=== PATIENT | female | born 1995 | race Caucasian/White ===

== ENCOUNTER 2021-09-05 14:25 | Emergency (ER) | payer MEDICARE, OTHER ==
[2021-09-05 14:34] VITALS: BP 138/71; PULSE 91; RESP 18; TEMP 98.9
[2021-09-05 15:35] LABS: Appearance,Urine Cloudy (Clear); Bacteria,Urine Many /hpf; Bilirubin,Urine Negative (Negative); Blood,Urine Negative (Negative); Color,Urine Yellow; Glucose,Urine (UA) Negative (Negative); Hyaline Casts,Urine 2 /lpf (0-2); Ketones,Urine Negative (Negative); Leukocyte Esterase,Urine Negative (Negative); Mucus,Urine Few /hpf; Nitrite,Urine Negative (Negative); Protein,Urine Trace (Negative); RBC,Urine 2 /hpf (0-5); Specific Gravity,Urine 1.025 (1.001-1.035); Squamous Epithelial Cell,Urine 5 /hpf (0-4); Urobilinogen,Urine <2.0 mg/dL (<2.0); WBC,Urine 16 /hpf (0-5)
[2021-09-05] MEDS ORDERED: SODIUM CHLORIDE 0.9% 2,000 ML IV STA (15:53)
[2021-09-05] MEDS ORDERED: MORPHINE SULFATE 4 MG/ML SYRINGE IVP STA (16:09)
[2021-09-05] MEDS ORDERED: CEPHALEXIN 250 MG CAP PO STA (16:10)
[2021-09-05 16:43] LABS: ALT 17 U/L (4-34); AST 22 U/L (14-36); African American GFR (CKD) >90 (>60 ml/min/1.73 sqM); Albumin 3.4 g/dL (3.5-5.0); Alkaline Phosphatase 117 U/L (38-126); Anion Gap 3 mmol/L; Blood Urea Nitrogen 12 mg/dL (7-17); Carbon Dioxide 28 mmol/L (22-30); Chloride 103 mmol/L (98-107); Glucose 69 mg/dL (74-99); Lipase 157 U/L (23-300); Non-African American GFR(CKD) >90 (>60 ml/min/1.73 sqM); Potassium 4.4 mmol/L (3.5-5.1); Sodium 134 mmol/L (137-145); Total Bilirubin 0.4 mg/dL (0.2-1.3); Total Protein 6.5 g/dL (6.3-8.2)
--- NOTE | 2021-09-05 17:02 | ED ---
General Adult HPI - General Chief complaint: Abdominal Pain Stated complaint: Fever,back/abd pain Time Seen by Provider: 09/05/21 15:44 Source: patient Mode of arrival: ambulatory Limitations: no limitations - History of Present Illness Initial comments: A0 female at 37 weeks who presents with a chief complaint of back pain. Patient states she has lower back issues which causes chronic pain however has experienced worsened pain since last night. Patient states the pain is in the lower right and left back. She states the pain is refractory to Tylenol. Patient also reports intermittent nausea since last night, one episode of vomiting, nonbloody. Patient currently denies nausea. Patient denies fever, chills, abdominal pain, and vaginal bleeding. Upon questioning patient does admit to burning with urination. Patient states she has just moved to the [facility] from up [place] and needs a new CONSUMER SERVICES CONSULTANT. - Related Data Previous Rx's Medication Instructions Recorded Cephalexin [Keflex] 250 mg PO Q6HR 5 Days #20 cap 09/05/21 Allergies Allergy/AdvReac Type Severity Reaction Status Date / Time No Known Allergies Allergy Verified 09/05/21 14:34 Review of Systems ROS Statement: Those systems with pertinent positive or pertinent negative responses have been documented in the HPI. ROS Other: All systems not noted in ROS Statement are negative. Past Medical History Past Medical History: Asthma Additional Past Medical History / Comment(s): preclampsia History of Any Multi-Drug Resistant Organisms: None Reported Past Surgical History: No Surgical Hx Reported Past Psychological History: No Psychological Hx Reported Smoking Status: Current every day smoker Past Alcohol Use History: None Reported Past Drug Use History: Marijuana General Exam Limitations: no limitations General appearance: alert, in no apparent distress Head exam: Present: atraumatic, normocephalic, normal inspection Eye exam: Present: normal appearance, PERRL, EOMI. Absent: scleral icterus, conjunctival injection, periorbital swelling Respiratory exam: Present: normal lung sounds bilaterally. Absent: respiratory distress, wheezes, rales, rhonchi, stridor Cardiovascular Exam: Present: regular rate, normal rhythm, normal heart sounds. Absent: systolic murmur, diastolic murmur, rubs, gallop, clicks GI/Abdominal exam: Present: soft, distended (Patient is 37 weeks ), normal bowel sounds. Absent: tenderness, guarding, rebound, rigid Back exam: Present: normal inspection, full ROM. Absent: CVA tenderness (R), CVA tenderness (L), muscle spasm, paraspinal tenderness, vertebral tenderness Neurological exam: Present: alert, oriented X3, CN II-XII intact Psychiatric exam: Present: normal affect, normal mood Skin exam: Present: warm, dry, intact, normal color. Absent: rash Course Vital Signs 09/05/21 14:30 Temperature 98.9 F Pulse Rate 91 Respiratory 18 Rate Blood Pressure 138/71 O2 Sat by Pulse 98 Oximetry Medical Decision Making - Medical Decision Making This is a 26 old female at 37 weeks who presents with back pain, dysuria, and intermittent nausea since last night. Thorough history and examination were performed. Patient is well-appearing apparent distress. She is afebrile. Pulse is normal at 91. No abdominal pain or vaginal bleeding. Laboratory studies reveal a mildly elevated white count at 10.9. Other laboratory studies are relative unremarkable. Urinalysis is indicative infection. Patient given dose of Keflex in the emergency department. heart tones were ordered however patient states she would like to be discharged. Patient does mention she needs a new CONSUMER SERVICES CONSULTANT so I will refer her. She is encouraged to follow up at earliest available appointment especially since she is due soon. I will discharge her with Keflex for urinary tract infection. Return parameters discussed. Patient verbalizes understanding. She was discharged in stable condition. Dr. Bhatia is my attending. - Lab Data Result diagrams: 09/05/21 16:06 09/05/21 16:06 Lab Results 09/05/21 09/05/21 09/05/21 Range/Units 15:21 16:06 16:06 WBC 10.9 H (3.8-10.6) k/uL RBC 3.99 (3.80-5.40) m/uL Hgb 12.7 (11.4-16.0) gm/dL Hct 37.5 (34.0-46.0) % MCV 93.9 (80.0-100.0) fL MCH 31.9 (25.0-35.0) pg MCHC 34.0 (31.0-37.0) g/dL RDW 13.6 (11.5-15.5) % Plt Count 241 (150-450) k/uL MPV 9.2 Neutrophils % 77 % Lymphocytes % 17 % Monocytes % 4 % Eosinophils % 0 % Basophils % 0 % Neutrophils # 8.4 H (1.3-7.7) k/uL Lymphocytes # 1.8 (1.0-4.8) k/uL Monocytes # 0.4 (0-1.0) k/uL Eosinophils # 0.0 (0-0.7) k/uL Basophils # 0.0 (0-0.2) k/uL Sodium 134 L (137-145) mmol/L Potassium 4.4 (3.5-5.1) mmol/L Chloride 103 (98-107) mmol/L Carbon Dioxide 28 (22-30) mmol/L Anion Gap 3 mmol/L BUN 12 (7-17) mg/dL Creatinine 0.57 (0.52-1.04) mg/dL Est GFR (CKD-EPI)AfAm >90 (>60 ml/min/1.73 sqM) Est GFR (CKD-EPI)NonAf >90 (>60 ml/min/1.73 sqM) Glucose 69 L (74-99) mg/dL Calcium 10.0 (8.4-10.2) mg/dL Total Bilirubin 0.4 (0.2-1.3) mg/dL AST 22 (14-36) U/L ALT 17 (4-34) U/L Alkaline Phosphatase 117 (38-126) U/L Total Protein 6.5 (6.3-8.2) g/dL Albumin 3.4 L (3.5-5.0) g/dL Lipase 157 (23-300) U/L Urine Color Yellow Urine Appearance Cloudy H (Clear) Urine pH 6.0 (5.0-8.0) Ur Specific [place] 1.025 (1.001-1.035) Urine Protein Trace H (Negative) Urine Glucose (UA) Negative (Negative) Urine Ketones Negative (Negative) Urine Blood Negative (Negative) Urine Nitrite Negative (Negative) Urine Bilirubin Negative (Negative) Urine Urobilinogen <2.0 (<2.0) mg/dL Ur Leukocyte Esterase Negative (Negative) Urine RBC 2 (0-5) /hpf Urine WBC 16 H (0-5) /hpf Ur Squamous Epith Cells 5 H (0-4) /hpf Urine Bacteria Many H (None) /hpf Hyaline Casts 2 (0-2) /lpf Urine Mucus Few H (None) /hpf Influenza Type A (PCR) (Not Detectd) Influenza Type B (PCR) (Not Detectd) RSV (PCR) (Not Detectd) SARS-CoV-2 (PCR) (Not Detectd) 09/05/21 Range/Units 16:55 WBC (3.8-10.6) k/uL RBC (3.80-5.40) m/uL Hgb (11.4-16.0) gm/dL Hct (34.0-46.0) % MCV (80.0-100.0) fL MCH (25.0-35.0) pg MCHC (31.0-37.0) g/dL RDW (11.5-15.5) % Plt Count (150-450) k/uL MPV Neutrophils % % Lymphocytes % % Monocytes % % Eosinophils % % Basophils % % Neutrophils # (1.3-7.7) k/uL Lymphocytes # (1.0-4.8) k/uL Monocytes # (0-1.0) k/uL Eosinophils # (0-0.7) k/uL Basophils # (0-0.2) k/uL Sodium (137-145) mmol/L Potassium (3.5-5.1) mmol/L Chloride (98-107) mmol/L Carbon Dioxide (22-30) mmol/L Anion Gap mmol/L BUN (7-17) mg/dL Creatinine (0.52-1.04) mg/dL Est GFR (CKD-EPI)AfAm (>60 ml/min/1.73 sqM) Est GFR (CKD-EPI)NonAf (>60 ml/min/1.73 sqM) Glucose (74-99) mg/dL Calcium (8.4-10.2) mg/dL Total Bilirubin (0.2-1.3) mg/dL AST (14-36) U/L ALT (4-34) U/L Alkaline Phosphatase (38-126) U/L Total Protein (6.3-8.2) g/dL Albumin (3.5-5.0) g/dL Lipase (23-300) U/L Urine Color Urine Appearance (Clear) Urine pH (5.0-8.0) Ur Specific [place] (1.001-1.035) Urine Protein (Negative) Urine Glucose (UA) (Negative) Urine Ketones (Negative) Urine Blood (Negative) Urine Nitrite (Negative) Urine Bilirubin (Negative) Urine Urobilinogen (<2.0) mg/dL Ur Leukocyte Esterase (Negative) Urine RBC (0-5) /hpf Urine WBC (0-5) /hpf Ur Squamous Epith Cells (0-4) /hpf Urine Bacteria (None) /hpf Hyaline Casts (0-2) /lpf Urine Mucus (None) /hpf Influenza Type A (PCR) Not Detected (Not Detectd) Influenza Type B (PCR) Not Detected (Not Detectd) RSV (PCR) Not Detected (Not Detectd) SARS-CoV-2 (PCR) Not Detected (Not Detectd) Disposition Clinical Impression: Urinary tract infection Disposition: HOME SELF-CARE Condition: Good Additional Instructions: You have a urinary tract infection. Please take antibiotic as directed. Follow-up with CONSUMER SERVICES CONSULTANT provided in 1-2 days. Return to the emergency department if you experience new, concerning, or worsening symptoms. Prescriptions: Cephalexin [Keflex] 250 mg PO Q6HR 5 Days #20 cap Is patient prescribed a controlled substance at d/c from ED?: No Referrals: None,Stated [Primary Care Provider] - 1-2 days Danny Lema MD [STAFF PHYSICIAN] - 1-2 days Time of Disposition: 17:02
[2021-09-05 17:08] LABS: Basophils % (A) 0 %; Eosinophils % (A) 0 %; HCT 37.5 % (34.0-46.0); HGB 12.7 gm/dL (11.4-16.0); Lymphocytes # (A) 1.8 k/uL (1.0-4.8); Lymphocytes % (A) 17 %; MCH 31.9 pg (25.0-35.0); MCV 93.9 fL (80.0-100.0); Mean Platelet Volume 9.2; Monocytes # (A) 0.4 k/uL (0-1.0); Monocytes % (A) 4 %; Neutrophils # (A) 8.4 k/uL (1.3-7.7); Neutrophils % (A) 77 %; Platelet Count 241 k/uL (150-450); RBC 3.99 m/uL (3.80-5.40); RDW 13.6 % (11.5-15.5); WBC 10.9 k/uL (3.8-10.6)
== END 2021-09-05 17:25 | disposition home or self-care (01) ==
LOC: EC 14:25
DX: O23.43 Unspecified infection of urinary tract in pregnancy, third trimester (principal); N39.0 Urinary tract infection, site not specified; O99.513 Diseases of the respiratory system complicating pregnancy, third trimester; J45.909 Unspecified asthma, uncomplicated; O99.333 Smoking (tobacco) complicating pregnancy, third trimester; F17.200 Nicotine dependence, unspecified, uncomplicated; O99.323 Drug use complicating pregnancy, third trimester; F12.90 Cannabis use, unspecified, uncomplicated; Z3A.37 37 weeks gestation of pregnancy
CPT/HCPCS: 36415; 80053; 83690; 85025; 81001; 87086; 87636; 99284; 96374; 96361; J2270

== ENCOUNTER 2021-09-16 20:55 | Outpatient (CLI) | payer MEDICARE, OTHER ==
[2021-09-16 21:19] VITALS: BP 121/75; PULSE 84; RESP 16; TEMP 96.8
[2021-09-16 21:35] LABS: Appearance,Urine Clear (Clear); Bilirubin,Urine Negative (Negative); Blood,Urine Negative (Negative); Color,Urine Yellow; Glucose,Urine (UA) Negative (Negative); Ketones,Urine Negative (Negative); Leukocyte Esterase,Urine Negative (Negative); Nitrite,Urine Negative (Negative); Protein,Urine Negative (Negative); Specific Gravity,Urine 1.012 (1.001-1.035); Urobilinogen,Urine <2.0 mg/dL (<2.0)
[2021-09-16 21:46] LABS: Amphetamine Screen,Urine Not Detected (NotDetected); Barbiturate Screen,Urine Not Detected (NotDetected); Benzodiazepines Screen,Urine Not Detected (NotDetected); Cocaine Screen,Urine Not Detected (NotDetected); Methadone Screen, Urine Not Detected (NotDetected); Opiate Screen,Urine Not Detected (NotDetected); Oxycodone Screen, Urine Not Detected (NotDetected); Phencyclidine Screen,Urine Not Detected (NotDetected); Tricyclic Antidepressant,Urine Not Detected (NotDetected); Urn Cannabinoid Scrn Detected (NotDetected)
[2021-09-16 21:50] LABS: Basophils % (A) 0 %; Eosinophils % (A) 0 %; HCT 36.9 % (34.0-46.0); HGB 12.2 gm/dL (11.4-16.0); Lymphocytes # (A) 1.8 k/uL (1.0-4.8); Lymphocytes % (A) 16 %; MCH 31.7 pg (25.0-35.0); MCHC 33.2 g/dL (31.0-37.0); MCV 95.6 fL (80.0-100.0); Mean Platelet Volume 9.3; Monocytes # (A) 0.3 k/uL (0-1.0); Monocytes % (A) 3 %; Neutrophils # (A) 8.3 k/uL (1.3-7.7); Neutrophils % (A) 78 %; Platelet Count 232 k/uL (150-450); RBC 3.87 m/uL (3.80-5.40); RDW 13.6 % (11.5-15.5); WBC 10.7 k/uL (3.8-10.6)
[2021-09-17 03:16] LABS: Hepatitis B Surface Antigen Nonreactive (Nonreactive)
[2021-09-17 05:53] LABS: HIV 2 AB Non-Reactive (Non-Reactive); HIV AB P24 Non-Reactive (Non-Reactive); HIV P24 AG Non-Reactive (Non-Reactive)
[2021-09-17 14:51] LABS: C. trachomatis,PCR Negative (Neg,Equiv); Chlamydia trachomatis Source Urine; N. gonorrhoeae,PCR Negative (Neg,Equiv); Neisseria Source Urine
--- NOTE | 2021-10-14 08:09 | P.MSEPDOC ---
Presenting Problems - Arrival Data Date of Arrival on Unit: 09/16/21 Time of Arrival on Unit: 20:55 Mode of Transport: EMS - Complaint OB-Reason for Admission/Chief Complaint: Possible Onset of Labor, Hyperemesis Medical History - Information : 1 Para: 0 Term: 39 : 0 Abortions: Spontaneous or Elective: 0 Number of Living Children: 0 - Gestational Age Gestational Age by TREV (wks/days): 39 Weeks and 0 Days - History Complications: Smoker Comment: Patient has epilepsy no seizure activity during this . Review of Systems - Review of Systems Constitutional: No problems Breast: No problems ENT: No problems Cardiovascular: No problems Respiratory: No problems Gastrointestinal: Diarrhea, Pain Genitourinary: No problems Musculoskeletal: No problems Neurological: No problems Skin: No problems Vital Signs - Temperature Temperature: 96.8 F Temperature Source: Temporal Artery Scan - Pulse Pulse Oximetery Pulse Rate: 84 Pulse Assessment Method: Pulse Oximetry - Respirations Respiratory Rate: 16 Oxygen Delivery Method: Room Air O2 Sat by Pulse Oximetry: 98 - Blood Pressure Right Arm Blood Pressure: 121/75 Blood Pressure Mean: 90 Blood Pressure Source: Automatic Cuff Medical Screen Scoring - Cervical Exam Dilation (cm): 0 - Assessment - Baby A Baseline FHR: 130 NST: Reactive Physician Notification - Physician Notified Physician Notified Date: 09/16/21 Physician Notified Time: 21:45 Physician: Alisia Pal Order Received: Yes - Notification Comment Comment: Patient instructed to call Dr. Fernandez office at [phone] to schedule an appointment for this week to get a plan together due to patient not having established care. Maternal Triage Index - Maternal Triage Index Presenting for scheduled procedure w/no complaint: No - Stat/Priority 1 Stat Priority 1: No - Urgent/Priority 2 Urgent Priority 2: No - Prompt/Priority 3 Prompt Priority 3: No - Non-Urgent/Priority 4 Non-Urgent Priority 4: Yes Criteria Met for Priority 4: >37 weeks early labor signs Disposition - Disposition OB Disposition: Physician follow up in office, Triage Discharge Date: 09/16/21 Discharge Time: 22:00 I agree with the RN Medical Screening Exam: Yes Case reviewed; plan agreed upon as documented in EMR&OBIX.: Yes Diagnosis: FALSE LABOR AT OR AFTER 37 COMPLETED WEEKS OF GESTATION
== END 2021-09-16 22:20 | disposition home or self-care (01) ==
LOC: FBPOP 20:55
PROVIDERS: ATTEND Obstetrics & Gynecology
DX: O47.1 False labor at or after 37 completed weeks of gestation (principal); O99.333 Smoking (tobacco) complicating pregnancy, third trimester; F17.200 Nicotine dependence, unspecified, uncomplicated; Z3A.39 39 weeks gestation of pregnancy
CPT/HCPCS: 59025; 86900; 86901; 86762; 82947; 85025; 86850; 87340; 81003; 87491; 87591; 86780; 80306; 87390; G0463; 99213

== ENCOUNTER 2021-09-21 12:01 | Inpatient (IN) | payer MEDICARE, OTHER ==
[2021-09-21] MEDS: LACTATED RINGERS 1,000 ML IV ONE ×2 (12:40→13:03)
[2021-09-21 12:49] LABS: Appearance,Urine Clear (Clear); Bacteria,Urine Moderate /hpf; Bilirubin,Urine Negative (Negative); Blood,Urine Small (Negative); Color,Urine Yellow; Glucose,Urine (UA) Negative (Negative); Ketones,Urine Negative (Negative); Leukocyte Esterase,Urine Negative (Negative); Mucus,Urine Rare /hpf; Nitrite,Urine Negative (Negative); PH, Urine 6.5 (5.0-8.0); Protein,Urine Negative (Negative); RBC,Urine 1 /hpf (0-5); Specific Gravity,Urine 1.012 (1.001-1.035); Squamous Epithelial Cell,Urine 1 /hpf (0-4); Urobilinogen,Urine <2.0 mg/dL (<2.0); WBC,Urine 3 /hpf (0-5)
[2021-09-21] MEDS ORDERED: CITRIC ACID-SODIUM CITRATE 15 ML CUP PO ONE (13:10)
[2021-09-21 13:16] LABS: Basophils % (A) 0 %; Eosinophils % (A) 0 %; HCT 37.8 % (34.0-46.0); HGB 12.4 gm/dL (11.4-16.0); Lymphocytes % (A) 16 %; MCHC 32.7 g/dL (31.0-37.0); MCV 94.7 fL (80.0-100.0); Mean Platelet Volume 9.4; Monocytes # (A) 0.4 k/uL (0-1.0); Monocytes % (A) 3 %; Neutrophils % (A) 79 %; Platelet Count 242 k/uL (150-450); RBC 3.99 m/uL (3.80-5.40); WBC 12.6 k/uL (3.8-10.6)
--- NOTE | 2021-09-21 13:36 | P.HPOB ---
History of Present Illness H&P Date: 09/21/21 Chief Complaint: 39-5/7 weeks, nonreassuring status The patient is a 26-year-old 1 para 0 who has had care at a number of different institutions around the state and presented here last week for the first time after which time she was brought to our office for her first visit at 39 weeks. She was found at that visit to have the diagnosis of intrauterine growth restriction with growth at the 10th percentile. She did, however, have a biophysical profile of 10 out of 10 with normal cord Dopplers. She additionally had a normal amniotic fluid index. Her appears to been essentially uncompensated though she is a fairly heavy smoker and, as noted above, had only spotty care at multiple different institutions. Her due dates of been determined by earlier ultrasounds at other institutions. On labor and delivery, she presented secondary to having seen a small blood clot and some urinary symptoms. Monitoring of heart tones demonstrates almost absent variability with repetitive subtle late decelera tions. Aggressive IV hydration as failed to rectify the situation. As a result, she will be taken the operating room for primary low-transverse section secondary to nonreassuring status remote from delivery. Obstetrical history: 1 para 0 with current statistics listed in history of present illness. EDC of 09/23/2021 was established by an early ultrasound at another institution. Laboratory workup done traits of blood type of O+ with a negative antibody screen. Rubella status is immune. Remainder of the laboratory workup was within normal limits. Urine drug screen has been positive only for cannabinoids. Glucola was has not been documented and group B strep status is not yet available. Gynecologic history: Apparently unremarkable with no history of any infections to include STDs. Review of Systems Review of systems is confined to history of present illness. Past Medical History Past Medical History: Asthma Additional Past Medical History / Comment(s): preclampsia History of Any Multi-Drug Resistant Organisms: None Reported Past Surgical History: No Surgical Hx Reported Smoking Status: Current every day smoker Medications and Allergies Home Medications Medication Instructions Recorded Confirmed Type Albuterol Inhaler [Ventolin Hfa 1 puff INHALATION RT-TID 09/16/21 09/21/21 History Inhaler] No.77/Iron Asp Gly/FA 1 each PO DAILY 09/16/21 09/21/21 History [Prenate Star Tablet] RX: Aspirin 81 mg PO DAILY 09/16/21 09/21/21 History Allergies Allergy/AdvReac Type Severity Reaction Status Date / Time No Known Allergies Allergy Verified 09/21/21 12:16 Exam Intake and Output 09/20/21 09/21/21 09/21/21 22:59 06:59 14:59 Other: Weight 66.678 kg In general, this is a well-developed, fairly thin white female in no acute distress. Her heart has a regular rhythm and rate without murmur. Her lungs are clear to auscultation bilaterally in all paige. Her abdomen is gravid, nondistended, has normal active bowel sounds, soft, nontender, and without any palpable masses aside from uterine fundus. Her extremities without any cyanosis, clubbing, or edema and are nontender to palpation bilaterally. Di gital cervical examination performed by the nursing staff demonstrates her cervix to be closed, thick, high, and firm. Results Result Diagrams: 09/21/21 12:40 Abnormal Lab Results - Last 24 Hours (Table) 09/21/21 09/21/21 Range/Units 12:07 12:40 WBC 12.6 H (3.8-10.6) k/uL Neutrophils # 10.0 H (1.3-7.7) k/uL Urine Blood Small H (Negative) Urine Bacteria Moderate H (None) /hpf Urine Mucus Rare H (None) /hpf Assessment and Plan (1) Intrauterine growth retardation in Current Visit: Yes Status: Acute Code(s): O36.5990 - MATERN CARE FOR OTH OR SUSP POOR FETL GRTH, UNSP TRI, UNSP SNOMED Code(s): 417762840 (2) Term Current Visit: Yes Status: Acute Code(s): Z34.90 - ENCNTR FOR SUPRVSN OF NORMAL , UNSP, UNSP TRIMESTER SNOMED Code(s): 68433119 (3) Non-reassuring electronic monitoring tracing Current Visit: Yes Status: Acute Code(s): O36.8390 - MATERN CARE FOR ABNLT FETL HRT RATE OR RHYM, UNSP TRI, UNSP SNOMED Code(s): 999903549 Plan: As the patient is remote from delivery, we will proceed with primary low- transverse section. Risks and complications have been discussed and the patient understands and agrees to proceed.
[2021-09-21] MEDS ORDERED: ONDANSETRON 4 MG/2 ML VIAL ONE (13:42)
[2021-09-21] MEDS ORDERED: OXYTOCIN 30 UNITS/500 ML NS BAG IV ONE (13:42)
[2021-09-21] MEDS ORDERED: fentaNYL (PF) 50 MCG/ML 2 ML AMP ONE (13:42)
[2021-09-21] MEDS ORDERED: KETOROLAC 15 MG/ML 1 ML VIAL ONE (13:42)
[2021-09-21] MEDS ORDERED: NALBUPHINE 10 MG/ML (1 ML AMP) ONE (13:42)
[2021-09-21 13:45] LABS: Amphetamine Screen,Urine Not Detected (NotDetected); Barbiturate Screen,Urine Not Detected (NotDetected); Benzodiazepines Screen,Urine Not Detected (NotDetected); Cocaine Screen,Urine Not Detected (NotDetected); Methadone Screen, Urine Not Detected (NotDetected); Opiate Screen,Urine Not Detected (NotDetected); Oxycodone Screen, Urine Not Detected (NotDetected); Phencyclidine Screen,Urine Not Detected (NotDetected); Tricyclic Antidepressant,Urine Not Detected (NotDetected); Urn Cannabinoid Scrn Not Detected (NotDetected)
[2021-09-21] MEDS ORDERED: MORPHINE SULFATE 2 MG/ML SYRINGE IVP PRN (14:05)
[2021-09-21] MEDS ORDERED: diphenhydrAMINE 50 MG/ML 1 ML VIAL IVP PRN ×3 (14:05→14:28)
[2021-09-21] MEDS ORDERED: ONDANSETRON 4 MG/2 ML VIAL IVP PRN ×2 (14:05→14:28)
[2021-09-21] MEDS ORDERED: NALOXONE 0.4 MG/ML 1 ML VIAL IV PRN (14:05)
[2021-09-21] MEDS ORDERED: METOCLOPRAMIDE 5 MG/ML 2 ML VIAL IVP PRN (14:28)
[2021-09-21] MEDS ORDERED: diphenhydrAMINE 25 MG CAP PO PRN (14:28)
[2021-09-21] MEDS ORDERED: HYDROmorphone 2 MG TAB PO PRN ×2 (14:28)
[2021-09-21] MEDS ORDERED: ZOLPIDEM 5 MG TAB PO PRN (14:28)
[2021-09-21] MEDS ORDERED: SIMETHICONE 80 MG CHEWABLE PO PRN (14:28)
[2021-09-21] MEDS ORDERED: diphenhydrAMINE 50 MG CAP PO PRN (14:28)
[2021-09-21] MEDS ORDERED: OXYTOCIN 30 UNITS/500 ML NS 30 UNIT in SALINE 1 500ML.BAG IV SCH (14:30)
--- NOTE | 2021-09-21 14:42 | P.OP ---
Date of Procedure: 09/21/21 Preoperative Diagnosis: #1. 39-5/7 weeks intrauterine , intrauterine growth restriction #2. Nonreassuring status Postoperative Diagnosis: Same plus #3. Thick meconium-stained fluid #4. True knot in the umbilical cord Procedure(s) Performed: #1. Primary low-transverse section, urgent Anesthesia: spinal Surgeon: Joe Dodd Stock Digger #1: Tara Suarez Estimated Blood Loss (ml): 600 IV fluids (ml): 500 Urine output (ml): 500 Pathology: other (Placenta) Condition: stable Disposition: floor Operative Findings: The patient presented to triage for apparent benign findings and was found to have minimal variability with repetitive subtle late decelerations which did not respond to aggressive fluid resuscitation. As she was remote from delivery, the plan was made to take her to the operating room for urgent primary low-transverse section. Intraoperatively, there was noted to be thick meconium-stained fluid. She was delivered of a viable 5 lbs. 7 oz. baby girl with Apgars of 4 at 1 minute and 9 at 5 minutes and 9 at 10 minutes in the occiput anterior position. The placenta was delivered manually, intact, and grossly normal with a grossly normal three-vessel cord noted to have a true knot in it. The uterus, tubes, and ovaries were entirely normal to inspection. There was no apparent evidence of placental abruption. Description of Procedure: The patient was prepped and draped in usual fashion after spinal anesthesia was administered by the anesthesiologist. A Pfannenstiel incision was made and extended into the abdominal cavity without difficulty. The bladder peritoneum was significantly distal to the intended site of incision was left intact. A 2 cm incision was made in the transverse plane of the lower uterine segment to enter the uterus at which time thick meconium-stained fluid was noted. The incision was extended in both directions with the bandage scissors. The head was delivered up and through the incision where the nose and mouth were thoroughly suctioned. The was delivered onto the field where the cord was doubly clamped, cut, and the infant passed for resuscitative measures with weight and Apgars as noted above. A true knot was noted in the cord and a segment of the cord was doubly clamped, cut, and set aside should cord gases become necessary. The placenta was delivered manually and intact as noted above. The uterus was exteriorized and the interior cavity of the uterus swept of any remaining placental or membranous fragments. The margins of the uterine incision were grasped with Williamson clamps and the incision closed in 2 layers. The first layer was a running locking stitch of 0 chromic catgut followed by a running imbricating stitch of 0 chromic catgut, each from margin to margin. Hemostasis appeared to be excellent. The posterior cul-de-sac was then suctioned with a guard as well as sponges with a laparotomy sponge. The uterine and ovarian findings are normal as noted above. The uterus was replaced within the abdominal cavity and the gutters swept of any remaining blood, fluid, or clot. The incision was reexamined and found to be hemostatic. The parietal peritoneum was loosely reapproximated in the layer of muscles examined and made hemostatic with the Bovie. The fascia was closed with 2 running stitches of 0 Vicryl proceeding from the lateral margins to the midpoint. The subcutaneous tissues were irrigated, made hemostatic with the Bovie, and reapproximated with a running stitch of 30 plain catgut. The skin was reapproximated with a running subcuticular stitch of 4-0 Vicryl followed by half-inch Steri-Strips placed with Mastisol. Assessment a blood loss for the case was approximately 600 mL, quantitative blood loss was 590 mL. All sponge, instrument, needle counts were correct. There were no complications. The patient tolerated the procedure well and proceeded to the recovery room in stable condition. Both mother and are resting comfortably in recovery of the is currently in special care unit secondary to requiring oxygen in the delivery room.
[2021-09-21] MEDS: ACETAMINOPHEN TAB 500 MG TAB PO SCH ×2 (18:16→23:05)
[2021-09-21] MEDS: SENNOSIDES-DOCUSATE SODIUM 1 EACH TAB PO SCH (20:16)
[2021-09-21] MEDS: KETOROLAC 15 MG/ML 1 ML VIAL IVP PRN (20:16)
[2021-09-21] MEDS: LACTATED RINGERS 1,000 ML IV SCH (23:06)
[2021-09-22] MEDS: KETOROLAC 15 MG/ML 1 ML VIAL IVP PRN ×2 (02:02→07:56)
[2021-09-22] MEDS: LACTATED RINGERS 1,000 ML IV SCH ×2 (04:27→08:07)
[2021-09-22] MEDS: IBUPROFEN 600 MG TAB PO SCH ×4 (04:29→19:53)
[2021-09-22] MEDS: ACETAMINOPHEN TAB 500 MG TAB PO SCH ×4 (04:57→23:40)
[2021-09-22 06:54] LABS: Basophils % (A) 0 %; Eosinophils # (A) 0.1 k/uL (0-0.7); Eosinophils % (A) 1 %; HCT 31.1 % (34.0-46.0); Lymphocytes # (A) 1.8 k/uL (1.0-4.8); Lymphocytes % (A) 13 %; MCH 30.9 pg (25.0-35.0); MCHC 32.1 g/dL (31.0-37.0); MCV 96.2 fL (80.0-100.0); Mean Platelet Volume 9.6; Monocytes # (A) 0.4 k/uL (0-1.0); Monocytes % (A) 3 %; Neutrophils # (A) 11.2 k/uL (1.3-7.7); Neutrophils % (A) 82 %; Platelet Count 182 k/uL (150-450); RBC 3.23 m/uL (3.80-5.40); WBC 13.7 k/uL (3.8-10.6)
[2021-09-22] MEDS: SENNOSIDES-DOCUSATE SODIUM 1 EACH TAB PO SCH ×2 (07:56→19:53)
--- NOTE | 2021-09-22 10:07 | P.PNOBGPC ---
Subjective - Subjective Patient reports: Reports appetite normal, Reports voiding normally, Reports pain well controlled, Reports ambulating normally : doing well, in NICU (Receiving prophylactic antibiotics pending culture.) Objective - Vital Signs Latest vital signs: Vital Signs Temp Pulse Resp BP Pulse Ox 09/22/21 08:00 96.9 F L 77 16 111/63 98 09/22/21 04:00 97.6 F 67 14 115/72 99 09/22/21 00:00 97.5 F L 71 16 113/67 99 09/21/21 20:00 97.7 F 72 14 139/82 96 09/21/21 19:05 98 09/21/21 19:00 18 09/21/21 17:05 16 09/21/21 16:10 98.5 F 66 16 137/77 98 09/21/21 15:55 70 16 132/80 97 09/21/21 15:25 73 16 144/79 98 09/21/21 15:10 72 16 137/81 97 09/21/21 15:05 75 16 97 09/21/21 14:55 65 16 125/74 98 09/21/21 14:40 64 16 124/67 99 09/21/21 14:25 98.1 F 70 18 141/80 100 09/21/21 13:00 97.2 F L 64 17 136/89 98 Intake and Output 09/21/21 09/22/21 09/22/21 22:59 06:59 14:59 Intake Total 1125 Output Total 1720 1350 Balance -1720 -225 Intake: IV 525 Oral 600 Output: Urine 1100 1350 Uretheral (Forde) 700 Estimated Blood Loss 600 Output, Quantitative 20 Blood Loss Other: # Voids 1 - Exam Extremities: Present: normal Abdomen: Present: normal appearance, soft. Absent: distention, tenderness Incision: Present: normal, dry, intact Uterus: Present: normal, firm (The uterine fundus is tonic and minimally tender below the umbilicus.) - Labs Labs: Abnormal Lab Results - Last 24 Hours (Table) 09/21/21 09/21/21 09/22/21 Range/Units 12:07 12:40 06:12 WBC 12.6 H 13.7 H (3.8-10.6) k/uL RBC 3.23 L (3.80-5.40) m/uL Hgb 10.0 L D (11.4-16.0) gm/dL Hct 31.1 L (34.0-46.0) % Neutrophils # 10.0 H 11.2 H (1.3-7.7) k/uL Urine Blood Small H (Negative) Urine Bacteria Moderate H (None) /hpf Urine Mucus Rare H (None) /hpf Assessment and Plan (1) Intrauterine growth retardation in Current Visit: Yes Status: Acute Code(s): O36.5990 - MATERN CARE FOR OTH OR SUSP POOR FETL GRTH, UNSP TRI, UNSP SNOMED Code(s): 841127805 (2) Term Current Visit: Yes Status: Acute Code(s): Z34.90 - ENCNTR FOR SUPRVSN OF NORMAL , UNSP, UNSP TRIMESTER SNOMED Code(s): 79697836 (3) Non-reassuring electronic monitoring tracing Current Visit: Yes Status: Acute Code(s): O36.8390 - MATERN CARE FOR ABNLT FETL HRT RATE OR RHYM, UNSP TRI, UNSP SNOMED Code(s): 447552442 (4) S/P section Current Visit: Yes Status: Acute Code(s): Z98.891 - HISTORY OF UTERINE SCAR FROM PREVIOUS SURGERY SNOMED Code(s): 094097826 Plan: Continue routine and postoperative care. Discharge would be possible tomorrow pending no complications with the patient may choose to remain in the hospital until the infant is released. I have strongly encouraged patient amulet in the hallways routinely. She is otherwise tolerating regular diet and performing all activities of daily living at this time.
--- NOTE | 2021-09-22 17:06 | P.PN ---
Progress Note - Text Date: 09/22/2021: Time: 07:45 The patient is status post section Vital signs stable VAS: 0-10 Patient has no complaints of pain. The patient incurred some minimal itching yesterday, this itching is now subsiding. Pain meds to be managed by service.
[2021-09-23] MEDS: IBUPROFEN 600 MG TAB PO SCH ×4 (02:48→23:57)
[2021-09-23] MEDS: ACETAMINOPHEN TAB 500 MG TAB PO SCH ×3 (06:45→20:21)
[2021-09-23] MEDS: SENNOSIDES-DOCUSATE SODIUM 1 EACH TAB PO SCH ×2 (08:31→20:21)
--- NOTE | 2021-09-23 12:51 | P.PN ---
Subjective Progress Note Date: 09/23/21 Principal diagnosis: Postoperative day #2 Positive flatus. Ambulating well. on antibiotics in the nursery. No complaints Objective - Vital Signs Vital signs: Vital Signs Temp 97.9 F 09/23/21 08:48 Pulse 95 09/23/21 08:48 Resp 18 09/23/21 08:48 BP 118/78 09/23/21 08:48 Pulse Ox 100 09/23/21 08:48 Intake & Output 09/22/21 09/23/21 09/23/21 18:59 06:59 18:59 Other: # Voids 1 2 - Constitutional General appearance: Present: average body habitus, cooperative - EENT Eyes: Present: PERRLA ENT: Present: hearing grossly normal - Respiratory Respiratory: bilateral: CTA - Cardiovascular Rhythm: regular - Gastrointestinal Gastrointestinal Comment(s): Incision clean and dry, Steri-Strips applied. Fundus firm, midline, symmetric, 18 week size. - Integumentary Integumentary: Present: normal - Neurologic Neurologic: Present: CNII-XII intact - Musculoskeletal Musculoskeletal: Present: gait normal, strength equal bilaterally, left sided weakness - Psychiatric Psychiatric: Present: A&O x's 3, appropriate affect, intact judgment & insight - Labs CBC & Chem 7: 09/22/21 06:12 Assessment and Plan Assessment: Doing well second postoperative day Plan: Continue postoperative care. Awaiting protective services social worker consult. Twain still in the nursery. Likely discharge home tomorrow. Time with Patient: Less than 30
[2021-09-24 01:04] VITALS: RESP 16
[2021-09-24] MEDS: IBUPROFEN 600 MG TAB PO SCH ×3 (07:53→15:26)
[2021-09-24] MEDS: SENNOSIDES-DOCUSATE SODIUM 1 EACH TAB PO SCH (07:59)
[2021-09-24] MEDS: ACETAMINOPHEN TAB 500 MG TAB PO SCH ×3 (07:59→18:45)
--- NOTE | 2021-09-24 09:06 | P.PN ---
Subjective Progress Note Date: 09/24/21 Principal diagnosis: Postoperative day #3 Slept well. Minimal pain. Minimal lochia rubra. Tearful regarding decision for adoption. Objective - Vital Signs Vital signs: Vital Signs Temp 98 F 09/24/21 07:57 Pulse 62 09/24/21 07:57 Resp 16 09/24/21 07:57 BP 112/67 09/24/21 07:57 Pulse Ox 98 09/24/21 07:57 Intake & Output 09/23/21 09/24/21 09/24/21 18:59 06:59 18:59 Other: # Voids 2 3 1 - Constitutional General appearance: Present: average body habitus, cooperative - EENT Eyes: Present: PERRLA ENT: Present: hearing grossly normal - Respiratory Respiratory: bilateral: CTA - Cardiovascular Rhythm: regular - Gastrointestinal Gastrointestinal Comment(s): Incision clean and dry, intact, Steri-Strips applied. Fundus firm, midline, symmetric, 16-18 week size - Integumentary Integumentary: Present: normal - Neurologic Neurologic: Present: CNII-XII intact - Musculoskeletal Musculoskeletal: Present: gait normal, strength equal bilaterally - Psychiatric Psychiatric: Present: A&O x's 3, appropriate affect, intact judgment & insight - Labs CBC & Chem 7: 09/22/21 06:12 Assessment and Plan Assessment: Doing well third postoperative day Plan: Oh waiting CPS consultation this morning. Social work following. Patient has made the decision for adoption, is appropriate and tearful in discussing this decision. We'll continue to follow, anticipate discharge home tomorrow. Time with Patient: Less than 30
[2021-09-25] MEDS: IBUPROFEN 600 MG TAB PO SCH ×3 (03:47→10:06)
--- NOTE | 2021-09-25 07:41 | P.DS ---
Providers Date of admission: 09/21/21 13:09 Expected date of discharge: 09/25/21 Attending physician: Alisia Pal Primary care physician: Stated None Hospital Course: This is a 26-year-old female 1 para 0 who presented with limited care at 39-5/7 weeks' gestation. Upon assessment, nonreassuring heart tones were noted. Decision was made for primary low transverse section, and she gave to a liveborn female . Infant weighed 5 lbs. 7 oz., or 2460 g. There was meconium-stained fluid and a true knot in the umbilical cord. Please see dictated operative note for details. Postoperatively the patient has done well. She has elected to give her daughter up for adoption, and adoptive family has been chosen. marketing services vice president and child protective services are involved. The patient this morning is actually doing well from the medical perspective. Her chest is clear. Extremities are negative. Breasts are not engorged. Incision is clean and dry, intact with Steri-Strips applied. Fundus is firm, midline, symmetric, 18 week size. There is minimal lochia rubra. Pain is well managed. Patient is being discharged home today in good condition. She will follow-up with me in the office in 2 weeks. I have reminded her no intercourse, tampons or douching. She will use [id number] Advil or Aleve, or Motrin as needed for pain. She will call with any fevers shakes or chills, foul smelling or copious lochia, with the passage of large blood clots, or indeed with any concerns. Assessment: Doing well post operative day #4 Patient Condition at Discharge: Good Plan - Discharge Summary Discharge Rx Participant: No New Discharge Prescriptions: No Action Albuterol Inhaler [Ventolin Hfa Inhaler] 1 puff INHALATION RT-TID No.77/Iron Asp Gly/FA [Prenate Star Tablet] 1 each PO DAILY Aspirin 81 mg PO DAILY Discharge Medication List Albuterol Inhaler [Ventolin Hfa Inhaler] 1 puff INHALATION RT-TID 09/16/21 [History] Aspirin 81 mg PO DAILY 09/16/21 [History] No.77/Iron Asp Gly/FA [Prenate Star Tablet] 1 each PO DAILY 09/16/21 [History] Follow up Appointment(s)/Referral(s): Alisia Pal MD [STAFF PHYSICIAN] - 2 Weeks Discharge Disposition: HOME SELF-CARE
[2021-09-25 08:28] VITALS: BP 125/81; PULSE 64; TEMP 98.2
[2021-09-25] MEDS: SENNOSIDES-DOCUSATE SODIUM 1 EACH TAB PO SCH (08:29)
[2021-09-25] MEDS: ACETAMINOPHEN TAB 500 MG TAB PO SCH ×2 (08:29→10:07)
== END 2021-09-25 15:15 | disposition home or self-care (01) | DRG 788 ==
LOC: FBPOP 12:01 → 4FBP 13:09
PROVIDERS: ADMIT Obstetrics & Gynecology; ATTEND Obstetrics & Gynecology
PROC: 10D00Z1 Extraction of Products of Conception, Low, Open Approach (ICD-10-PCS; principal; 2021-09-21 13:48)
DX: O36.5930 Maternal care for other known or suspected poor fetal growth, third trimester, not applicable or unspecified (principal); F17.200 Nicotine dependence, unspecified, uncomplicated; J45.909 Unspecified asthma, uncomplicated; O69.2XX0 Labor and delivery complicated by other cord entanglement, with compression, not applicable or unspecified; O76 Abnormality in fetal heart rate and rhythm complicating labor and delivery; O77.0 Labor and delivery complicated by meconium in amniotic fluid; O99.334 Smoking (tobacco) complicating childbirth; O99.52 Diseases of the respiratory system complicating childbirth; Z37.0 Single live birth; Z3A.39 39 weeks gestation of pregnancy; Z79.82 Long term (current) use of aspirin
CPT/HCPCS: 36415; 59025; 80306; 81001; 85025; 86850; 86900; 86901; 88307; 96365; 99214

== ENCOUNTER 2023-04-01 19:21 | Emergency (ER) | payer MEDICARE, OTHER ==
[2023-04-01 20:13] VITALS: BP 107/73; PULSE 92; RESP 18; TEMP 98.2
--- NOTE | 2023-04-01 20:34 | ED ---
ENT HPI - General Chief complaint: Dental/Oral Stated complaint: Headache,tooth pain Time Seen by Provider: 04/01/23 20:21 Source: patient Mode of arrival: ambulatory Limitations: no limitations - History of Present Illness Initial comments: 27-year-old female presenting with chief complaint of dental pain. Patient has 4 impacted wisdom teeth and states that she gets frequent pain and infections. She states that this pain has been ongoing for a few days but is much worse today. She is having no difficulty breathing or swallowing. No drooling. No swelling. No fevers or chills no nausea or vomiting. No trismus. Currently awaiting follow-up with [facility]. - Related Data Home Medications Medication Instructions Recorded Confirmed Albuterol Inhaler [Ventolin Hfa 1 puff INHALATION RT-TID 09/16/21 09/21/21 Inhaler] Aspirin 81 mg PO DAILY 09/16/21 09/21/21 No.77/Iron Asp Gly/FA 1 each PO DAILY 09/16/21 09/21/21 [Prenate Star Tablet] Previous Rx's Medication Instructions Recorded Acetaminophen-Codeine 300-30mg 1 tab PO Q6H PRN 3 Days #12 tablet 04/01/23 [Tylenol w/codeine #3] Amoxic-Pot Clav 875-125Mg 1 tab PO Q12HR 7 Days #14 tab 04/01/23 [Augmentin 875-125] Allergies Allergy/AdvReac Type Severity Reaction Status Date / Time No Known Allergies Allergy Verified 04/01/23 19:59 Review of Systems ROS Statement: Those systems with pertinent positive or pertinent negative responses have been documented in the HPI. ROS Other: All systems not noted in ROS Statement are negative. Past Medical History Past Medical History: Asthma Additional Past Medical History / Comment(s): preclampsia History of Any Multi-Drug Resistant Organisms: None Reported Past Surgical History: No Surgical Hx Reported Past Psychological History: Anxiety Smoking Status: Current every day smoker, Vaper Past Alcohol Use History: None Reported Past Drug Use History: Marijuana General Exam Limitations: no limitations General appearance: alert, in no apparent distress Head exam: Present: atraumatic, normocephalic, normal inspection Eye exam: Present: normal appearance, EOMI Expanded Mouth exam: Present: normal external inspection, tongue normal. Absent: drooling, trismus, muffled voice Teeth exam: Present: dental tenderness #. Absent: dental caries Throat exam: normal inspection Neck exam: Present: normal inspection, full ROM Respiratory exam: Absent: respiratory distress Neurological exam: Present: alert, oriented X3 Psychiatric exam: Present: normal affect, normal mood Skin exam: Present: warm, dry, intact, normal color. Absent: rash Course Vital Signs 04/01/23 19:54 Temperature 98.2 F Pulse Rate 92 Respiratory 18 Rate Blood Pressure 107/73 O2 Sat by Pulse 97 Oximetry Medical Decision Making - Medical Decision Making Was pt. sent in by a medical professional or institution (, GER, COMBAT SYSTEMS OPERATOR, urgent care, hospital, or skilled nursing...) When possible be specific @ -No Did you speak to anyone other than the patient for history (EMS, parent, family, police, friend...)? What history was obtained from this source @ -No Did you review nursing and triage notes (agree or disagree)? Why? @ -I reviewed and agree with nursing and triage notes Were old charts reviewed (outside hosp., previous admission, EMS record, old EKG, old radiological studies, urgent care reports/EKG's, skilled nursing records)? Report findings @ -No old charts were reviewed Differential Diagnosis (chest pain, altered mental status, abdominal pain women, abdominal pain men, vaginal bleeding, weakness, fever, dyspnea, syncope, headache, dizziness, GI bleed, back pain, seizure, CVA, palpatations, mental health, musculoskeletal)? @ -Differential includes toothache, dental abscess, Jovani's angina, this is not an all inclusive list EKG interpreted by me (3pts min.). @ -As above X-rays interpreted by me (1pt min.). @ -None done CT interpreted by me (1pt min.). @ -None done U/S interpreted by me (1pt. min.). @ -None done What testing was considered but not performed or refused? (CT, X-rays, U/S, labs)? Why? @ -None What meds were considered but not given or refused? Why? @ -None Did you discuss the management of the patient with other professionals (professionals i.e. , GER, COMBAT SYSTEMS OPERATOR, lab, RT, psych nurse, school social worker, cotton weigher operator, teacher, senior loan officer, patient case manager)? Give summary @ -No Was smoking cessation discussed for >3mins.? @ -No Was critical care preformed (if so, how long)? @ -No Were there social determinants of health that impacted care today? How? (Homelessness, low income, unemployed, alcoholism, drug addiction, transportation, low edu. Level, literacy, decrease access to med. care, halfway, rehab)? @ -No Was there de-escalation of care discussed even if they declined (Discuss DNR or withdrawal of care, Hospice)? DNR status @ -No What co-morbidities impacted this encounter? (DM, HTN, Smoking, COPD, CAD, Cancer, CVA, ARF, Chemo, Hep., AIDS, mental health diagnosis, sleep apnea, morbid obesity)? @ -None Was patient admitted / discharged? Hospital course, mention meds given and route, prescriptions, significant lab abnormalities, going to OR and other pertinent info. @ -27-year-old female with history of several impacted wisdom teeth presenting with chief complaint of dental pain. States that she is currently awaiting follow-up with the with them. Physical exam and history are conducted. Patient will be started on Augmentin and provided with pain medication for home. Follow-up with dentist. Follow-up with PCP. Report back to ER with any new or worsening symptoms. Discussed return parameters and answered all questions. Patient conveyed verbal understanding and agreed to the plan. I discussed this case in detail with my attending Dr. Koroma Undiagnosed new problem with uncertain prognosis? @ -No Drug Therapy requiring intensive monitoring for toxicity (Heparin, Nitro, Insulin, Cardizem)? @ -No Were any procedures done? @ -No Diagnosis/symptom? @ -Dental pain Acute, or Chronic, or Acute on Chronic? @ -Acute Uncomplicated (without systemic symptoms) or Complicated (systemic symptoms)? @ -Uncomplicated Side effects of treatment? @ -No Exacerbation, Progression, or Severe Exacerbation? @ -No Poses a threat to life or bodily function? How? (Chest pain, [place], [place], pneumonia, PE, COPD, DKA, ARF, appy, cholecystitis, CVA, Diverticulitis, Homicidal, Suicidal, threat to staff... and all critical care pts) @ -No Disposition Clinical Impression: Dental abscess Disposition: HOME SELF-CARE Condition: Good Instructions (If sedation given, give patient instructions): Dental Abscess (ED), Toothache (ED) Additional Instructions: Follow up with oral surgeon. Report back to ER with any new or worsening symptoms. Prescriptions: Amoxic-Pot Clav 875-125Mg [Augmentin 875-125] 1 tab PO Q12HR 7 Days #14 tab Acetaminophen-Codeine 300-30mg [Tylenol w/codeine #3] 1 tab PO Q6H PRN 3 Days #12 tablet PRN Reason: Pain Is patient prescribed a controlled substance at d/c from ED?: No Referrals: None,Stated [Primary Care Provider] - 1-2 days Jagdeep Canchola DDS [STAFF PHYSICIAN] - 1-2 days Time of Disposition: 20:34
[2023-04-01] MEDS ORDERED: Acetaminophen-Codeine 300-30mg TAB PO STA (20:42)
[2023-04-01] MEDS ORDERED: AMOXIC-POT CLAV 875-125MG 1 EACH TAB PO STA (20:42)
== END 2023-04-01 20:50 | disposition home or self-care (01) ==
LOC: EC 19:21
DX: K04.7 Periapical abscess without sinus (principal); J45.909 Unspecified asthma, uncomplicated; F17.290 Nicotine dependence, other tobacco product, uncomplicated; F12.90 Cannabis use, unspecified, uncomplicated; Z79.899 Other long term (current) drug therapy; Z79.82 Long term (current) use of aspirin
CPT/HCPCS: 99283

== ENCOUNTER 2023-04-22 00:14 | Emergency (ER) | payer MEDICARE, OTHER ==
[2023-04-22] MEDS ORDERED: DEXAMETHASONE SOD PHOSPHATE 10 MG/ML 1 ML VIAL IVP STA (00:27)
[2023-04-22] MEDS ORDERED: ONDANSETRON 4 MG/2 ML VIAL IVP STA (00:27)
[2023-04-22] MEDS ORDERED: SODIUM CHLORIDE 0.9% 1,000 ML IV STA (00:27)
[2023-04-22] MEDS ORDERED: KETOROLAC 15 MG/ML 1 ML VIAL IVP STA (00:27)
--- NOTE | 2023-04-22 00:44 | ED ---
Nausea/Vomiting/Diarrhea HPI - General Chief complaint: Recheck/Abnormal Lab/Rx Stated complaint: Covid+ Time Seen by Provider: 04/22/23 00:16 Source: patient, RN notes reviewed Mode of arrival: EMS Limitations: no limitations - History of Present Illness Initial comments: This is a 27-year-old female who presents to the emergency department for body aches, nausea, and vomiting. Patient tested positive for Covid at [facility] yesterday. States that over the last 2 days she has been unable to keep anything down. She is taking Tylenol with codeine for her bodyaches, which has not been effective. She rode in the ambulance with her mother, who is also being evaluated today for body aches related to Covid. Denies any fevers or chills. Also denies any chest pain or shortness of breath. MD complaint: nausea, vomiting - Related Data Home Medications Medication Instructions Recorded Confirmed Albuterol Inhaler [Ventolin Hfa 1 puff INHALATION RT-TID 09/16/21 09/21/21 Inhaler] Aspirin 81 mg PO DAILY 09/16/21 09/21/21 No.77/Iron Asp Gly/FA 1 each PO DAILY 09/16/21 09/21/21 [Prenate Star Tablet] Previous Rx's Medication Instructions Recorded Acetaminophen-Codeine 300-30mg 1 tab PO Q6H PRN 3 Days #12 tablet 04/01/23 [Tylenol w/codeine #3] Amoxic-Pot Clav 875-125Mg 1 tab PO Q12HR 7 Days #14 tab 04/01/23 [Augmentin 875-125] Ketorolac [Toradol] 10 mg PO Q6HR PRN #15 tab 04/22/23 Molnupiravir [Lagevrio (Eua)] 800 mg PO BID 5 Days #40 cap 04/22/23 Ondansetron Odt [Zofran Odt] 4 mg PO Q8HR PRN #20 tab 04/22/23 Allergies Allergy/AdvReac Type Severity Reaction Status Date / Time No Known Allergies Allergy Verified 04/01/23 19:59 Review of Systems ROS Statement: Those systems with pertinent positive or pertinent negative responses have been documented in the HPI. ROS Other: All systems not noted in ROS Statement are negative. Past Medical History Past Medical History: Asthma Additional Past Medical History / Comment(s): preclampsia History of Any Multi-Drug Resistant Organisms: None Reported Past Surgical History: No Surgical Hx Reported Past Psychological History: Anxiety Smoking Status: Current every day smoker, Vaper Past Alcohol Use History: Occasional Past Drug Use History: Marijuana General Exam Limitations: no limitations General appearance: alert, in no apparent distress Head exam: Present: atraumatic, normocephalic, normal inspection Respiratory exam: Present: normal lung sounds bilaterally. Absent: respiratory distress, wheezes, rales, rhonchi, stridor Cardiovascular Exam: Present: regular rate, normal rhythm, normal heart sounds. Absent: systolic murmur, diastolic murmur, rubs, gallop, clicks GI/Abdominal exam: Present: soft, normal bowel sounds. Absent: distended, tenderness, guarding, rebound, rigid Neurological exam: Present: alert, oriented X3, CN II-XII intact Psychiatric exam: Present: normal affect, normal mood Skin exam: Present: warm, dry, intact, normal color. Absent: rash Course Vital Signs 04/22/23 04/22/23 00:16 02:13 Temperature 99.8 F H Pulse Rate 75 80 Respiratory 18 19 Rate Blood Pressure 105/72 107/69 O2 Sat by Pulse 98 99 Oximetry Medical Decision Making - Medical Decision Making This is a 27-year-old female who presents to the emergency department for body aches, nausea, and vomiting. Was pt. sent in by a medical professional or institution? @ -No Did you speak to anyone other than the patient for history? @ -No Did you review nursing and triage notes? @ -Yes, and I agree, it is accurate with regards to the patient's symptoms. Were old charts reviewed? @ -No Differential Diagnosis? @ -Differential Nausea and Vomiting: Gastroenteritis, cholecystitis, appendicitis, pancreatitis, migraine, benign positional vertigo, food borne illness, pyelonephritis, irritable bowel syndrome, influenza, Covid, GERD, incarcerated hernia, intestinal obstruction, this is not meant to be an all-inclusive list. EKG interpreted by me (3pts min.)? @ -Not obtained X-rays interpreted by me (1pt min.)? @ -Not obtained CT interpreted by me (1pt min.)? @ -Not obtained U/S interpreted by me (1pt. min.)? @ -Not obtained What testing was considered but not performed? (CT, X-rays, U/S, labs)? Why? @ -None What meds were considered but not given? Why? @ -None Did you discuss the management of the patient with other professionals? @ -No Did you reconcile home meds? @ -No Was smoking cessation discussed for >3mins.? @ -I discussed smoking cessation for greater than 3 minutes. The risk of smoking were discussed with the patient including but not limited to risks of cancer, stroke, coronary artery disease and COPD. Also discussed with patient were multiple methods of quitting smoking. Lastly we discussed the financial cost of smoking. Was critical care preformed (if so, how long)? @ -No Were there social determinants of health that impacted care today? How? (Homelessness, low income, unemployed, alcoholism, drug addiction, transportation, low edu. Level, literacy, decrease access to med. care, senior living, rehab)? @ -No Was there de-escalation of care discussed even if they declined? (Discuss DNR or withdrawal of care, Hospice)? @ -No What co-morbidities impacted this encounter? (DM, HTN, Smoking, COPD, CAD, Cancer, CVA, Hep., AIDS, mental health diagnosis, sleep apnea, morbid obesity)? @ -Asthma Was patient admitted / discharged? @ -Discharged. Patient's symptoms were well controlled with IV fluids, Zofran, and Toradol, and she was tolerating oral intake without difficulty. Discussed with the patient the option of antiviral therapy, and she did wish to proceed. Rx for Molnupiravir provided with dosing instructions reviewed. She was also given prescriptions for Toradol and Zofran for additional symptomatic management. She is advised to slowly advance her diet as tolerated and remain well-hydrated. Also advised that she'll need to quarantine for 5 days and practice extra precautions for an additional 5 days, including always wearing a mask around others and avoiding travel. Undiagnosed new problem with uncertain prognosis? @ -None Drug Therapy requiring intensive monitoring for toxicity (Heparin, Nitro, Insulin, Cardizem)? @ -None Were any procedures done? @ -None Diagnosis/symptom? @ -COVID-19, nausea and vomiting Acute, or Chronic, or Acute on Chronic? @ -Acute Uncomplicated (without systemic symptoms) or Complicated (systemic symptoms)? @ -Uncomplicated Side effects of treatment? @ -None Exacerbation, Progression, or Severe Exacerbation] @ -Not applicable Poses a threat to life or bodily function? @ -No Return precautions reviewed in depth, the patient is instructed to return to the emergency department with any new, worsening, or concerning symptoms. Patient verbalized understanding. This case was discussed in detail with the attending ED physician, Dr. Koroma. Presentation, findings, and treatment plan discussed in detail as well. Disposition Clinical Impression: COVID-19, Nausea and vomiting, Nicotine dependence Disposition: HOME SELF-CARE Instructions (If sedation given, give patient instructions): COVID-19 (Coronavirus Disease 2019) (ED), How to Recover from COVID-19 at Home (ED) Additional Instructions: Return to the emergency department with any new, worsening, or concerning symptoms. Take the Molnupiravir as prescribed for 5 days. Take the Toradol with Tylenol as needed for pain relief. If you choose to take the Toradol, do not take any other anti-inflammatories such as ibuprofen, take one or the other. You can take the Zofran up to every 8 hours as needed for nausea and vomiting. You can apply the Afrin nasal spray as needed to help with congestion, however avoid using this for more than 3 days, as you can develop a dependency on it. Patient that you remain well-hydrated. You will also need to quarantine for 5 days. Prescriptions: Molnupiravir [Lagevrio (Eua)] 800 mg PO BID 5 Days #40 cap Ketorolac [Toradol] 10 mg PO Q6HR PRN #15 tab PRN Reason: Pain Ondansetron Odt [Zofran Odt] 4 mg PO Q8HR PRN #20 tab PRN Reason: Nausea And Vomiting Is patient prescribed a controlled substance at d/c from ED?: No Referrals: Fátima Joy MD [Primary Care Provider] - 1-2 days
[2023-04-22 01:08] VITALS: TEMP 99.8
[2023-04-22] MEDS ORDERED: OXYMETAZOLINE 0.05% NASL SPRAY 1 SPRAY BOTTLE NASAL STA (01:38)
[2023-04-22] MEDS ORDERED: ONDANSETRON 4 MG ODT STARTER PACK 2 TAB BTL PO STA (01:50)
[2023-04-22 02:19] VITALS: BP 107/69; PULSE 80; RESP 19
== END 2023-04-22 02:17 | disposition home or self-care (01) ==
LOC: EC 00:14 → SUPCPDRO 00:14 → EC 02:17
DX: U07.1 COVID-19 (principal); F17.290 Nicotine dependence, other tobacco product, uncomplicated; J45.909 Unspecified asthma, uncomplicated; F41.9 Anxiety disorder, unspecified; F12.90 Cannabis use, unspecified, uncomplicated; Z79.82 Long term (current) use of aspirin; Z79.899 Other long term (current) drug therapy
CPT/HCPCS: 99284; 96374; 96375 ×2; 96361; 99406; J1100; J2405; J1885; S0119

== ENCOUNTER 2023-04-26 15:34 | Emergency (ER) | payer MEDICARE, OTHER ==
[2023-04-26] MEDS ORDERED: SODIUM CHLORIDE 0.9% 1,000 ML IV STA (17:08)
[2023-04-26] MEDS ORDERED: KETOROLAC 15 MG/ML 1 ML VIAL IVP STA (17:08)
--- NOTE | 2023-04-26 17:18 | ED ---
General Adult HPI - General Chief complaint: Upper Respiratory Infection Stated complaint: throat pain, dizzy, vomiting Time Seen by Provider: 04/26/23 16:08 Source: patient Mode of arrival: ambulatory Limitations: no limitations - History of Present Illness Initial comments: A 27-year-old female presenting to the ED with a chief complaint of myalgias. Patient seen earlier this week after recent positive diagnosis of COVID. Patient was provided prescription for Toradol and Zofran. Since discharge. Patient reports continued symptoms including but not limited to nausea, vomiting, myalgias, cough, sore throat, generalized weakness. Reports that the Toradol has not been any completely taking away her pain and reports that she would like to try "stronger Tylenol". States that Zofran has not been completely effective in controlling her nausea however does report some relief with it. No other complaints. - Related Data Home Medications Medication Instructions Recorded Confirmed Albuterol Inhaler [Ventolin Hfa 1 puff INHALATION RT-TID 09/16/21 09/21/21 Inhaler] Aspirin 81 mg PO DAILY 09/16/21 09/21/21 No.77/Iron Asp Gly/FA 1 each PO DAILY 09/16/21 09/21/21 [Prenate Star Tablet] Previous Rx's Medication Instructions Recorded Acetaminophen-Codeine 300-30mg 1 tab PO Q6H PRN 3 Days #12 tablet 04/01/23 [Tylenol w/codeine #3] Amoxic-Pot Clav 875-125Mg 1 tab PO Q12HR 7 Days #14 tab 04/01/23 [Augmentin 875-125] Ketorolac [Toradol] 10 mg PO Q6HR PRN #15 tab 04/22/23 Molnupiravir [Lagevrio (Eua)] 800 mg PO BID 5 Days #40 cap 04/22/23 Ondansetron Odt [Zofran Odt] 4 mg PO Q8HR PRN #20 tab 04/22/23 Allergies Allergy/AdvReac Type Severity Reaction Status Date / Time No Known Allergies Allergy Verified 04/26/23 16:02 Review of Systems ROS Statement: Those systems with pertinent positive or pertinent negative responses have been documented in the HPI. ROS Other: All systems not noted in ROS Statement are negative. Past Medical History Past Medical History: Asthma Additional Past Medical History / Comment(s): preclampsia History of Any Multi-Drug Resistant Organisms: None Reported Past Surgical History: No Surgical Hx Reported Past Psychological History: Anxiety Smoking Status: Current every day smoker, Vaper Past Alcohol Use History: Occasional Past Drug Use History: Marijuana General Exam Limitations: no limitations General appearance: alert, in no apparent distress ENT exam: Present: normal exam Neck exam: Present: normal inspection Respiratory exam: Present: normal lung sounds bilaterally Cardiovascular Exam: Present: regular rate, normal rhythm GI/Abdominal exam: Present: soft Neurological exam: Present: alert, oriented X3 Skin exam: Present: warm, dry Course Vital Signs 04/26/23 04/26/23 15:58 19:13 Temperature 98.0 F 98.5 F Pulse Rate 65 62 Respiratory 22 18 Rate Blood Pressure 99/63 108/66 O2 Sat by Pulse 98 98 Oximetry Medical Decision Making - Medical Decision Making Was pt. sent in by a medical professional or institution (, PA, CATHEAD OPERATOR, urgent care, hospital, or alf...) When possible be specific @ -No Did you speak to anyone other than the patient for history (EMS, parent, family, police, friend...)? What history was obtained from this source @ -No Did you review nursing and triage notes (agree or disagree)? Why? @ -I reviewed and agree with nursing and triage notes Were old charts reviewed (outside hosp., previous admission, EMS record, old EKG, old radiological studies, urgent care reports/EKG's, alf records)? Report findings @ -Prior visit reviewed. Showed patient was provided prescription for Toradol and Zofran. Also started on antivirals. Differential Diagnosis (chest pain, altered mental status, abdominal pain women, abdominal pain men, vaginal bleeding, weakness, fever, dyspnea, syncope, headache, dizziness, GI bleed, back pain, seizure, CVA, palpatations, mental health, musculoskeletal)? @ -Differential Fever: Pneumonia, viral URI, endocarditis, myocarditis, pericarditis, otitis, sinusitis , peritonsillar Abscess, retropharyngeal Abscess, epiglottitis, peritonitis, appendicitis, Ibis cystitis, diverticulitis, hepatitis, colitis, UTI, PID, TOA, pyelonephritis, prostatitis, epididymitis, meningitis, encephalitis, pulmonary embolism, CVA, thyroid storm, pancreatitis, adrenal crisis, cavernous sinus thrombosis, this is not meant to be an all-inclusive list. EKG interpreted by me (3pts min.). @ -None X-rays interpreted by me (1pt min.). @ -None done CT interpreted by me (1pt min.). @ -None done U/S interpreted by me (1pt. min.). @ -None done What testing was considered but not performed or refused? (CT, X-rays, U/S, labs)? Why? @ -None What meds were considered but not given or refused? Why? @ -None Did you discuss the management of the patient with other professionals (professionals i.e. DrShaniqua, PA, CATHEAD OPERATOR, lab, RT, psych nurse, drug abuse social worker, sr. director, teacher, branch officer, director of casework)? Give summary @ -No Was smoking cessation discussed for >3mins.? @ -No Was critical care preformed (if so, how long)? @ -No Were there social determinants of health that impacted care today? How? (Homelessness, low income, unemployed, alcoholism, drug addiction, transportation, low edu. Level, literacy, decrease access to med. care, retirement, rehab)? @ -No Was there de-escalation of care discussed even if they declined (Discuss DNR or withdrawal of care, Hospice)? DNR status @ -No What co-morbidities impacted this encounter? (DM, HTN, Smoking, COPD, CAD, Cancer, CVA, ARF, Chemo, Hep., AIDS, mental health diagnosis, sleep apnea, morbi d obesity)? @ -None Was patient admitted / discharged? Hospital course, mention meds given and route, prescriptions, significant lab abnormalities, going to OR and other pertinent info. @ -Discharge 27 year old female with history of recent Ibis diagnoses presenting to the ED with continued URI symptoms and concern for myalgias and nausea as her Zofran and Toradol have not been completely resolving her symptoms and patient reports that she would like to try "stronger" Tylenol. Receive IV fluids and Toradol. At this time vital signs stable afebrile. Instructed to continue prescriptions from prior visit. Discharged home in stable condition. Discussed return precautions patient verbalizes agreement. Undiagnosed new problem with uncertain prognosis? @ -No Drug Therapy requiring intensive monitoring for toxicity (Heparin, Nitro, Insulin, Cardizem)? @ -No Were any procedures done? @ -No Diagnosis/symptom? @ -COVID Acute, or Chronic, or Acute on Chronic? @ -Acute Uncomplicated (without systemic symptoms) or Complicated (systemic symptoms)? @ -Uncomplicated Side effects of treatment? @ -No Exacerbation, Progression, or Severe Exacerbation? @ -No Poses a threat to life or bodily function? How? (Chest pain, [place], [place], pneumonia, PE, COPD, DKA, ARF, appy, cholecystitis, CVA, Diverticulitis, Homicidal, Suicidal, threat to staff... and all critical care pts) @ -No Disposition Clinical Impression: COVID Disposition: HOME SELF-CARE Condition: Good Additional Instructions: Please return to the Emergency Department if symptoms worsen or any other concerns. Is patient prescribed a controlled substance at d/c from ED?: No Referrals: Fátima Joy MD [Primary Care Provider] - 1-2 days Time of Disposition: 19:17
[2023-04-26 19:31] VITALS: BP 108/66; PULSE 62; RESP 18; TEMP 98.5
== END 2023-04-26 19:40 | disposition home or self-care (01) ==
LOC: EC 15:34
DX: U07.1 COVID-19 (principal); J45.909 Unspecified asthma, uncomplicated; F12.90 Cannabis use, unspecified, uncomplicated; F17.290 Nicotine dependence, other tobacco product, uncomplicated; Z79.82 Long term (current) use of aspirin; Z79.899 Other long term (current) drug therapy
CPT/HCPCS: 99284; 96374; 96361; J1885; 96360; 99283

== ENCOUNTER 2023-12-08 21:09 | Emergency (ER) | payer MEDICARE, OTHER ==
[2023-12-08 21:35] VITALS: RESP 18
[2023-12-08] MEDS: KETOROLAC 15 MG/ML 1 ML VIAL IM STA (23:07)
[2023-12-08] MEDS: LIDOCAINE 4% PATCH TOPICAL ONE (23:08)
[2023-12-08] MEDS: DEXAMETHASONE SOD PHOSPHATE 10 MG/ML 1 ML VIAL IM STA (23:08)
[2023-12-08] MEDS: CYCLOBENZAPRINE 10 MG TAB PO STA (23:08)
--- NOTE | 2023-12-08 23:30 | ED ---
Extremity Problem HPI - General Chief complaint: Extremity Problem,Nontraumatic Stated complaint: L Foot/Knee Pain Time Seen by Provider: 12/08/23 22:35 Source: patient, RN notes reviewed Mode of arrival: ambulatory Limitations: no limitations - History of Present Illness Initial comments: This is a 28-year-old female who presents to the emergency department for left leg and foot pain as well as lower back pain. States that for years she has been dealing with lower back pain causing radiation down her left leg. States that over the last couple of days she has had pain shooting up from her big toe into her knee. Also notes irritation to her toe as a result of her shoes rubbing over it. Denies any injuries. Denies any loss of bowel/bladder control or saddle anesthesia. She is not taking anything for pain. Denies any swelling of the leg. - Related Data Home Medications Medication Instructions Recorded Confirmed Albuterol Inhaler [Ventolin Hfa 1 puff INHALATION RT-TID 09/16/21 09/21/21 Inhaler] Aspirin 81 mg PO DAILY 09/16/21 09/21/21 No.77/Iron Asp Gly/FA 1 each PO DAILY 09/16/21 09/21/21 [Prenate Star Tablet] Previous Rx's Medication Instructions Recorded Acetaminophen-Codeine 300-30mg 1 tab PO Q6H PRN 3 Days #12 tablet 04/01/23 [Tylenol w/codeine #3] Amoxic-Pot Clav 875-125Mg 1 tab PO Q12HR 7 Days #14 tab 04/01/23 [Augmentin 875-125] Ketorolac [Toradol] 10 mg PO Q6HR PRN #15 tab 04/22/23 Molnupiravir [Lagevrio (Eua)] 800 mg PO BID 5 Days #40 cap 04/22/23 Ondansetron Odt [Zofran Odt] 4 mg PO Q8HR PRN #20 tab 04/22/23 Cyclobenzaprine [Flexeril] 10 mg PO TID PRN #30 tab 12/09/23 predniSONE 50 mg PO DAILY 5 Days #5 tab 12/09/23 Allergies Allergy/AdvReac Type Severity Reaction Status Date / Time No Known Allergies Allergy Verified 12/08/23 21:35 Review of Systems ROS Statement: Those systems with pertinent positive or pertinent negative responses have been documented in the HPI. ROS Other: All systems not noted in ROS Statement are negative. Past Medical History Past Medical History: Asthma Additional Past Medical History / Comment(s): preclampsia History of Any Multi-Drug Resistant Organisms: None Reported Past Surgical History: No Surgical Hx Reported Past Psychological History: Anxiety Smoking Status: Current every day smoker, Vaper Past Alcohol Use History: Occasional Past Drug Use History: Marijuana General Exam Limitations: no limitations General appearance: alert, in no apparent distress Head exam: Present: atraumatic, normocephalic, normal inspection Respiratory exam: Present: normal lung sounds bilaterally. Absent: respiratory distress, wheezes, rales, rhonchi, stridor Cardiovascular Exam: Present: regular rate, normal rhythm, normal heart sounds. Absent: systolic murmur, diastolic murmur, rubs, gallop, clicks Extremities exam: Present: other (No swelling or erythema of the left lower extremity. No tenderness or deformities. Full range of motion. 2+ DP and PT pulses.) Neurological exam: Present: alert, oriented X3, CN II-XII intact Psychiatric exam: Present: normal affect, normal mood Skin exam: Present: warm, dry, intact, normal color. Absent: rash Course Vital Signs 12/08/23 12/09/23 21:33 01:04 Temperature 98.6 F 98.4 F Pulse Rate 91 88 Respiratory 18 18 Rate Blood Pressure 144/90 141/83 O2 Sat by Pulse 97 98 Oximetry Medical Decision Making - Medical Decision Making This is a 28 year old female who presents to the emergency department for leg pain and back pain. Was pt. sent in by a medical professional or institution? @ -No Did you speak to anyone other than the patient for history? @ -No Did you review nursing and triage notes? @ -Yes, and I agree, it is accurate with regards to the patient's symptoms. Were old charts reviewed? @ -No Differential Diagnosis? @ -Differential Musculoskeletal: Muscular strain, contusion, ligament sprain, fracture, arthritis, septic arthritis, bursitis, cellulitis, muscle spasm, nerve compression, DVT, arterial occlusion, herpes zoster, electrolyte abnormality, tumor.... This is not meant to be in all inclusive list EKG interpreted by me (3pts min.)? @ -Not obtained X-rays interpreted by me (1pt min.)? @ -X-ray of the lumbar spine obtained. My interpretation identifies no acute fractures. CT interpreted by me (1pt min.)? @ -Not obtained U/S interpreted by me (1pt. min.)? @ -Not obtained What testing was considered but not performed? (CT, X-rays, U/S, labs)? Why? @ -None What meds were considered but not given? Why? @ -None Did you discuss the management of the patient with other professionals? @ -No Did you reconcile home meds? @ -No Was smoking cessation discussed for >3mins.? @ -No Was critical care preformed (if so, how long)? @ -No Were there social determinants of health that impacted care today? How? (Home lessness, low income, unemployed, alcoholism, drug addiction, transportation, low edu. Level, literacy, decrease access to med. care, [facility], rehab)? @ -No Was there de-escalation of care discussed even if they declined? (Discuss DNR or withdrawal of care, Hospice)? @ -No What co-morbidities impacted this encounter? (DM, HTN, Smoking, COPD, CAD, Ca ncer, CVA, Hep., AIDS, mental health diagnosis, sleep apnea, morbid obesity)? @ -None Was patient admitted / discharged? @ -Discharged. X-ray of the lumbar spine obtained revealing no acute process. Physical examination demonstrated no irregularities. She had no tenderness, swelling, erythema, or changes in temperature. She was also neurovascularly intact. Given that the pain goes down the leg from the back and has been a fairly chronic issue, advised that this is likely related to a nerve problem such as sciatica. Symptoms well-controlled in the emergency department. Prescription for prednisone and Flexeril provided. Advised she follow-up with her primary care provider for reevaluation. Patient discharged home in stable condition. Undiagnosed new problem with uncertain prognosis? @ -None Drug Therapy requiring intensive monitoring for toxicity (Heparin, Nitro, Insulin, Cardizem)? @ -None Were any procedures done? @ -None Diagnosis/symptom? @ -Left leg pain, back pain Acute, or Chronic, or Acute on Chronic? @ -Chronic Uncomplicated (without systemic symptoms) or Complicated (systemic symptoms)? @ -Uncomplicated Side effects of treatment? @ -None Exacerbation, Progression, or Severe Exacerbation] @ -Exacerbation/progression Poses a threat to life or bodily function? @ -No Return precautions reviewed in depth, the patient is instructed to return to the emergency department with any new, worsening, or concerning symptoms. Patient verbalized understanding. This case was discussed in detail with the attending ED physician, Dr. Koroma. Presentation, findings, and treatment plan discussed in detail as well. - Radiology Data Radiology results: report reviewed, image reviewed Disposition Clinical Impression: Left leg pain, Lumbar pain with radiation down left leg Disposition: HOME SELF-CARE Instructions (If sedation given, give patient instructions): Lumbar Radiculopathy (ED), Leg Pain (ED) Additional Instructions: Return to the emergency department with any new, worsening, or concerning symptoms. Take the prednisone daily for 5 days. After finishing this, alternate with ibuprofen and Tylenol. Take the Flexeril up to 3 times daily. Be aware that this may make you drowsy. Follow up with your primary care provider in 1-2 days. Prescriptions: Cyclobenzaprine [Flexeril] 10 mg PO TID PRN #30 tab PRN Reason: Pain predniSONE 50 mg PO DAILY 5 Days #5 tab Is patient prescribed a controlled substance at d/c from ED?: No Referrals: Fátima Joy MD [Primary Care Provider] - 1-2 days Time of Disposition: 00:38
[2023-12-09] MEDS: ACET/COD 300 MG/30 MG STARTER PACK 6 TAB BTL PO STA (01:01)
[2023-12-09] MEDS: CYCLOBENZAPRINE 10MG STARTER 3 TAB BTL PO STA (01:01)
[2023-12-09 01:06] VITALS: BP 141/83; PULSE 88; TEMP 98.4
--- NOTE | 2023-12-09 01:10 | XR ---
EXAM: XR Lumbosacral Spine, 2 or 3 Views CLINICAL HISTORY: ITS.REASON XR Reason: Pain TECHNIQUE: Frontal and lateral views of the lumbar spine and sacrum. COMPARISON: No relevant prior studies available. FINDINGS: Vertebrae: Unremarkable. No acute fracture. Normal alignment. Sacrum/coccyx: Unremarkable as visualized. No acute fracture. Disc spaces: No acute findings. No significant narrowing. Soft tissues: Unremarkable. IMPRESSION: Normal lumbar spine x-rays.
== END 2023-12-09 01:06 | disposition home or self-care (01) ==
LOC: EC 21:09
DX: M54.50 Low back pain, unspecified (principal); M79.605 Pain in left leg; F17.290 Nicotine dependence, other tobacco product, uncomplicated
CPT/HCPCS: 72100; 99284; 96372 ×2; J1100; J1885

== ENCOUNTER 2024-03-03 10:10 | Emergency (ER) | payer MEDICARE, OTHER ==
[2024-03-03 11:08] VITALS: TEMP 98.2
[2024-03-03] MEDS: METOCLOPRAMIDE 5 MG/ML 2 ML VIAL IVP STA (12:33)
[2024-03-03] MEDS: SODIUM CHLORIDE 0.9% 1,000 ML IV STA (12:34)
[2024-03-03 12:47] LABS: Basophils % (A) 0 %; Eosinophils % (A) 1 %; HCT 41.2 % (34.0-46.0); HGB 13.3 gm/dL (11.4-16.0); Lymphocytes # (A) 1.4 k/uL (1.0-4.8); Lymphocytes % (A) 23 %; MCH 30.5 pg (25.0-35.0); MCHC 32.4 g/dL (31.0-37.0); MCV 94.2 fL (80.0-100.0); Mean Platelet Volume 8.1; Monocytes # (A) 0.3 k/uL (0-1.0); Monocytes % (A) 6 %; Neutrophils # (A) 4.1 k/uL (1.3-7.7); Neutrophils % (A) 69 %; Platelet Count 268 k/uL (150-450); RBC 4.37 m/uL (3.80-5.40)
[2024-03-03 13:00] LABS: ALT 24 U/L (4-34); AST 23 U/L (14-36); African American GFR (CKD) >90 (>60 ml/min/1.73 sqM); Albumin 4.3 g/dL (3.5-5.0); Alkaline Phosphatase 97 U/L (38-126); Anion Gap 6 mmol/L; Blood Urea Nitrogen 12 mg/dL (7-17); Calcium 9.3 mg/dL (8.4-10.2); Carbon Dioxide 25 mmol/L (22-30); Chloride 109 mmol/L (98-107); Glucose 101 mg/dL (74-99); Non-African American GFR(CKD) >90 (>60 ml/min/1.73 sqM); Potassium 3.9 mmol/L (3.5-5.1); Sodium 140 mmol/L (137-145); Total Bilirubin 0.5 mg/dL (0.2-1.3)
[2024-03-03 13:07] LABS: Appearance,Urine Clear (Clear); Bilirubin,Urine Negative (Negative); Blood,Urine Small (Negative); Color,Urine Yellow; Glucose,Urine (UA) Negative (Negative); Ketones,Urine Trace (Negative); Leukocyte Esterase,Urine Negative (Negative); Mucus,Urine Few /hpf; Nitrite,Urine Negative (Negative); Protein,Urine Trace (Negative); RBC,Urine 3 /hpf (0-5); Specific Gravity,Urine 1.029 (1.001-1.035); Squamous Epithelial Cell,Urine 3 /hpf (0-4); Urobilinogen,Urine <2.0 mg/dL (<2.0); WBC,Urine 2 /hpf (0-5)
[2024-03-03] MEDS: SODIUM CHLORIDE 0.9% 500 ML 500 ML IV STA (14:02)
[2024-03-03] MEDS: KETOROLAC 15 MG/ML 1 ML VIAL IVP STA (14:03)
--- NOTE | 2024-03-03 14:41 | ED ---
Nausea/Vomiting/Diarrhea HPI - General Chief complaint: Nausea/Vomiting/Diarrhea Stated complaint: Vomiting Time Seen by Provider: 03/03/24 10:19 Source: patient, RN notes reviewed Mode of arrival: ambulatory Limitations: no limitations - History of Present Illness Initial comments: This is a 28-year-old female presenting with nausea and vomiting x 7 hours. Patient states vomiting is likely due to eating [employer] pizza last night. Patient also endorses ongoing decreased urinary output, urinary frequency and urinary odor despite use of Keflex for recently diagnosed UTI. Patient also mentions headache and bilateral temples (5 out of 10). Patient endorses "blacking out" that worsens with position change, causing lightheadedness. Patient states this has been occurring for years without known palpitations. Patient also endorses vaginal itching and white discharge with known history of BV and yeast infection. Patient denies fever, chills, fatigue, body aches, chest pain, dyspnea, diarrhea constipation, dysuria, hematemesis. MD complaint: nausea, vomiting Onset/Timin -: hour(s) Description of Vomiting: food contents Context: possible food poisoning - Related Data Home Medications Medication Instructions Recorded Confirmed Albuterol Inhaler [Ventolin Hfa 1 puff INHALATION RT-TID 09/16/21 09/21/21 Inhaler] Aspirin 81 mg PO DAILY 09/16/21 09/21/21 No.77/Iron Asp Gly/FA 1 each PO DAILY 09/16/21 09/21/21 [Prenate Star Tablet] Previous Rx's Medication Instructions Recorded Acetaminophen-Codeine 300-30mg 1 tab PO Q6H PRN 3 Days #12 tablet 04/01/23 [Tylenol w/codeine #3] Amoxic-Pot Clav 875-125Mg 1 tab PO Q12HR 7 Days #14 tab 04/01/23 [Augmentin 875-125] Ketorolac [Toradol] 10 mg PO Q6HR PRN #15 tab 04/22/23 Molnupiravir [Lagevrio (Eua)] 800 mg PO BID 5 Days #40 cap 04/22/23 Ondansetron Odt [Zofran Odt] 4 mg PO Q8HR PRN #20 tab 04/22/23 Cyclobenzaprine [Flexeril] 10 mg PO TID PRN #30 tab 12/09/23 predniSONE 50 mg PO DAILY 5 Days #5 tab 12/09/23 Fluconazole 150 mg PO ONCE #2 tab 03/03/24 Ondansetron Odt [Zofran Odt] 4 mg PO Q8HR PRN #10 tab 03/03/24 Allergies Allergy/AdvReac Type Severity Reaction Status Date / Time tree pollen Allergy Unknown Uncoded 03/03/24 11:01 Review of Systems ROS Statement: Those systems with pertinent positive or pertinent negative responses have been documented in the HPI. ROS Other: All systems not noted in ROS Statement are negative. Past Medical History Past Medical History: Asthma, Seizure Disorder Additional Past Medical History / Comment(s): pre-eclampsia History of Any Multi-Drug Resistant Organisms: None Reported Past Surgical History: Section Past Psychological History: Anxiety, Depression, PTSD Smoking Status: Current every day smoker, Vaper Past Alcohol Use History: Occasional Past Drug Use History: Marijuana General Exam Limitations: no limitations General appearance: alert, in no apparent distress Head exam: Present: atraumatic, normocephalic, normal inspection Eye exam: Present: normal appearance, PERRL, EOMI. Absent: scleral icterus, conjunctival injection, periorbital swelling ENT exam: Present: normal exam, mucous membranes moist Neck exam: Present: normal inspection. Absent: tenderness, meningismus, lymphadenopathy Respiratory exam: Present: normal lung sounds bilaterally. Absent: respiratory distress, wheezes, rales, rhonchi, stridor Cardiovascular Exam: Present: regular rate, normal rhythm, normal heart sounds. Absent: systolic murmur, diastolic murmur, rubs, gallop, clicks GI/Abdominal exam: Present: soft, normal bowel sounds. Absent: distended, tenderness, guarding, rebound, rigid Extremities exam: Present: normal inspection, full ROM, normal capillary refill. Absent: tenderness, pedal edema, joint swelling, calf tenderness Back exam: Present: normal inspection Neurological exam: Present: alert, oriented X3, CN II-XII intact Psychiatric exam: Present: normal affect, normal mood Skin exam: Present: warm, dry, intact, normal color. Absent: rash Course Vital Signs 03/03/24 11:02 Temperature 98.2 F Pulse Rate 70 Respiratory 18 Rate Blood Pressure 116/76 O2 Sat by Pulse 98 Oximetry Medical Decision Making - Medical Decision Making Was pt. sent in by a medical professional or institution ([facility], [facility], urgent care, hospital, or senior living...) When possible be specific @ -[No] Did you speak to anyone other than the patient for history (EMS, parent, family, police, friend...)? What history was obtained from this source @ -[No] Did you review nursing and triage notes (agree or disagree)? Why? @ -[I reviewed and agree with nursing and triage notes] Were old charts reviewed (outside hosp., previous admission, EMS record, old EKG, old radiological studies, urgent care reports/EKG's, senior living records)? Report findings @ -[No old charts were reviewed] Differential Diagnosis (chest pain, altered mental status, abdominal pain women, abdominal pain men, vaginal bleeding, weakness, fever, dyspnea, syncope, headache, dizziness, GI bleed, back pain, seizure, CVA, palpatations, mental health, musculoskeletal)? @ -Differential Abdominal Pain Women: Appendicitis, Cholecystitis, diverticulosis, ischemic bowel, pancreatitis, hepatitis, UTI, gastroenteritis, AAA, incarcerated hernia, bowel obstruction, constipation, inflammatory bowel, hepatitis, peptic ulcer disease, splenic infarction, perforated viscus, vulvitis, ovarian torsion, PID, kidney stone, placenta abruption, this is not meant to be an all-inclusive list EKG interpreted by me (3pts min.). @ -Not done X-rays interpreted by me (1pt min.). @ -[None done] CT interpreted by me (1pt min.). @ -[None done] U/S interpreted by me (1pt. min.). @ -[None done] What testing was considered but not performed or refused? (CT, X-rays, U/S, labs)? Why? @ -[None] What meds were considered but not given or refused? Why? @ -[None] Did you discuss the management of the patient with other professionals (professionals i.e. [facility], [facility], lab, RT, psych nurse, social worker assistant, lump receiver, teacher, deportation officer, case management manager)? Give summary @ -[No] Was smoking cessation discussed for >3mins.? @ -[No] Was critical care preformed (if so, how long)? @ -[No] Were there social determinants of health that impacted care today? How? (Homelessness, low income, unemployed, alcoholism, drug addiction, transport ation, low edu. Level, literacy, decrease access to med. care, fpc, rehab)? @ -[No] Was there de-escalation of care discussed even if they declined (Discuss DNR or withdrawal of care, Hospice)? DNR status @ -[No] What co-morbidities impacted this encounter? (DM, HTN, Smoking, COPD, CAD, Cancer, CVA, ARF, Chemo, Hep., AIDS, mental health diagnosis, sleep apnea, morbid obesity)? @ -[None] Was patient admitted / discharged? Hospital course, mention meds given and route, prescriptions, significant lab abnormalities, going to OR and other pertinent info. @ -Discharged. Lab work and UA were unremarkable. Patient treated with IV fluid, Reglan and Toradol solving nausea and headache. Patient sent home with Zofran and Diflucan. Advised to continue Keflex as previously prescribed. Vies increase water and cranberry juice intake advise jami tea/jami abby for nausea and DANIE diet. Undiagnosed new problem with uncertain prognosis? @ -[No] Drug Therapy requiring intensive monitoring for toxicity (Heparin, Nitro, Insulin, Cardizem)? @ -[No] Were any procedures done? @ -[No] Diagnosis/symptom? @ -Resolving UTI, foodborne illness, vulvovaginal candidiasis Acute, or Chronic, or Acute on Chronic? @ -Acute Uncomplicated (without systemic symptoms) or Complicated (systemic symptoms)? @ -Uncomplicated Side effects of treatment? @ -[No] Exacerbation, Progression, or Severe Exacerbation? @ -[No] Poses a threat to life or bodily function? How? (Chest pain, USA, SC, pneumonia, PE, COPD, DKA, ARF, appy, cholecystitis, CVA, Diverticulitis, Homicidal, Suicidal, threat to staff... and all critical care pts) @ -[No] - Lab Data Result diagrams: 03/03/24 12:32 03/03/24 12:32 Lab Results 03/03/24 03/03/24 03/03/24 Range/Units 12:32 12:32 12:32 WBC 6.0 (3.8-10.6) k/uL RBC 4.37 (3.80-5.40) m/uL Hgb 13.3 (11.4-16.0) gm/dL Hct 41.2 (34.0-46.0) % MCV 94.2 (80.0-100.0) fL MCH 30.5 (25.0-35.0) pg MCHC 32.4 (31.0-37.0) g/dL RDW 12.0 (11.5-15.5) % Plt Count 268 (150-450) k/uL MPV 8.1 Neutrophils % 69 % Lymphocytes % 23 % Monocytes % 6 % Eosinophils % 1 % Basophils % 0 % Neutrophils # 4.1 (1.3-7.7) k/uL Lymphocytes # 1.4 (1.0-4.8) k/uL Monocytes # 0.3 (0-1.0) k/uL Eosinophils # 0.0 (0-0.7) k/uL Basophils # 0.0 (0-0.2) k/uL Sodium 140 (137-145) mmol/L Potassium 3.9 (3.5-5.1) mmol/L Chloride 109 H (98-107) mmol/L Carbon Dioxide 25 (22-30) mmol/L Anion Gap 6 mmol/L BUN 12 (7-17) mg/dL Creatinine 0.64 (0.52-1.04) mg/dL Est GFR (CKD-EPI)AfAm >90 (>60 ml/min/1.73 sqM) Est GFR (CKD-EPI)NonAf >90 (>60 ml/min/1.73 sqM) Glucose 101 H (74-99) mg/dL Calcium 9.3 (8.4-10.2) mg/dL Total Bilirubin 0.5 (0.2-1.3) mg/dL AST 23 (14-36) U/L ALT 24 (4-34) U/L Alkaline Phosphatase 97 (38-126) U/L Total Protein 7.0 (6.3-8.2) g/dL Albumin 4.3 (3.5-5.0) g/dL Urine Color Yellow Urine Appearance Clear (Clear) Urine pH 6.0 (5.0-8.0) Ur Specific [place] 1.029 (1.001-1.035) Urine Protein Trace H (Negative) Urine Glucose (UA) Negative (Negative) Urine Ketones Trace H (Negative) Urine Blood Small H (Negative) Urine Nitrite Negative (Negative) Urine Bilirubin Negative (Negative) Urine Urobilinogen <2.0 (<2.0) mg/dL Ur Leukocyte Esterase Negative (Negative) Urine RBC 3 (0-5) /hpf Urine WBC 2 (0-5) /hpf Ur Squamous Epith Cells 3 (0-4) /hpf Urine Mucus Few H (None) /hpf Urine HCG, Qual (Not Detectd) 03/03/24 Range/Units 12:32 WBC (3.8-10.6) k/uL RBC (3.80-5.40) m/uL Hgb (11.4-16.0) gm/dL Hct (34.0-46.0) % MCV (80.0-100.0) fL MCH (25.0-35.0) pg MCHC (31.0-37.0) g/dL RDW (11.5-15.5) % Plt Count (150-450) k/uL MPV Neutrophils % % Lymphocytes % % Monocytes % % Eosinophils % % Basophils % % Neutrophils # (1.3-7.7) k/uL Lymphocytes # (1.0-4.8) k/uL Monocytes # (0-1.0) k/uL Eosinophils # (0-0.7) k/uL Basophils # (0-0.2) k/uL Sodium (137-145) mmol/L Potassium (3.5-5.1) mmol/L Chloride (98-107) mmol/L Carbon Dioxide (22-30) mmol/L Anion Gap mmol/L BUN (7-17) mg/dL Creatinine (0.52-1.04) mg/dL Est GFR (CKD-EPI)AfAm (>60 ml/min/1.73 sqM) Est GFR (CKD-EPI)NonAf (>60 ml/min/1.73 sqM) Glucose (74-99) mg/dL Calcium (8.4-10.2) mg/dL Total Bilirubin (0.2-1.3) mg/dL AST (14-36) U/L ALT (4-34) U/L Alkaline Phosphatase (38-126) U/L Total Protein (6.3-8.2) g/dL Albumin (3.5-5.0) g/dL Urine Color Urine Appearance (Clear) Urine pH (5.0-8.0) Ur Specific [place] (1.001-1.035) Urine Protein (Negative) Urine Glucose (UA) (Negative) Urine Ketones (Negative) Urine Blood (Negative) Urine Nitrite (Negative) Urine Bilirubin (Negative) Urine Urobilinogen (<2.0) mg/dL Ur Leukocyte Esterase (Negative) Urine RBC (0-5) /hpf Urine WBC (0-5) /hpf Ur Squamous Epith Cells (0-4) /hpf Urine Mucus (None) /hpf Urine HCG, Qual Not Detected (Not Detectd) Disposition Clinical Impression: Food poisoning, UTI (urinary tract infection), Vulvovaginal candidiasis Disposition: HOME SELF-CARE Condition: Good Instructions (If sedation given, give patient instructions): Acute Nausea and Vomiting (ED) Prescriptions: Fluconazole 150 mg PO ONCE #2 tab Ondansetron Odt [Zofran Odt] 4 mg PO Q8HR PRN #10 tab PRN Reason: Nausea Is patient prescribed a controlled substance at d/c from ED?: No Referrals: None,Stated [Primary Care Provider] - 1-2 days Time of Disposition: 14:41
[2024-03-03 14:52] VITALS: BP 118/75; PULSE 68; RESP 20
== END 2024-03-03 14:52 | disposition home or self-care (01) ==
LOC: EC 10:10
DX: N39.0 Urinary tract infection, site not specified (principal); A05.9 Bacterial foodborne intoxication, unspecified; B37.31 Acute candidiasis of vulva and vagina; F17.290 Nicotine dependence, other tobacco product, uncomplicated; Z91.048 Other nonmedicinal substance allergy status
CPT/HCPCS: 36415; 80053; 85025; 81001; 81025; 99284; 96374; 96375; 96361 ×2; J2765; J1885